=== PATIENT | male | born 1950 | race Caucasian/White ===

== ENCOUNTER 2020-10-04 11:27 | Emergency (ER) | payer MEDICARE, SELFPAY ==
[2020-10-04] MEDS ORDERED: Lidocaine 1% w/Epinephrine 1:100K 20 ML VIAL ONE (11:38)
[2020-10-04 19:56] LABS: RBC Count-Automated (BF) 5012 /cu.mm; WBC/Nucleated-Auto (BF) 1646 uL
[2020-10-04 19:57] LABS: Body Fluid Source Synovial Fluid; Tube # EDTA
[2020-10-04 19:58] LABS: BF Color Yellow; Clarity Cloudy/Turbid (Clear)
[2020-10-04 20:00] LABS: Cell Count Non Hematic 78 %
[2020-10-04 20:01] LABS: BF Segmented Neutrophils 4 %; Eosinophils 3 %; Lymphocytes 15 %
== END 2020-10-04 12:29 | disposition home or self-care (01) ==
LOC: BURERS 11:27
DX: S50.02XA Contusion of left elbow, initial encounter (principal); S40.811A Abrasion of right upper arm, initial encounter; M70.22 Olecranon bursitis, left elbow; F17.210 Nicotine dependence, cigarettes, uncomplicated; W18.30XA Fall on same level, unspecified, initial encounter
CPT/HCPCS: 20605; 82945; 85060; 87070; 87205; 89051; 89060